=== PATIENT | male | born 1980 | race Caucasian/White ===

== ENCOUNTER 2025-02-17 12:34 | Inpatient (IN) ==
--- NOTE | 2025-02-17 13:39 | Emergency Department Note ---
Impression & Plan Decompensated cirrhosis, Abdominal ascites, Anemia, Hyperbilirubinemia, Hypocalcemia ED Provider Note NAME: SCARLETT PETER AGE: 44 SEX: M : 1980 ARRIVES VIA: Walk-In INFORMANT: Patient, Triage note ED PROVIDER(S): Bk Hewitt MD CHIEF COMPLAINT: Swollen stomach MEDICAL DECISION MAKING: Patient presents with above and likely does have significant ascitic fluid. IV was established and blood work was obtained. Patient was ordered IV morphine. Blood work shows a normal white count with a hemoglobin of 7.4. Patient's platelet count is 77. The patient's kidney function creatinine 1.4. Patient's ammonia is not elevated. Bilirubin of 2.9. Calcium 7.8. The patient was ordered calcium a gram for replacement. I did speak with the on-call hospitalist service Kathie RODRIGUEZ and the patient was admitted by Dr. Ashley. I did perform a diagnostic paracentesis after discussing the risks and benefits and after obtaining written consent removing approximately 40 cc of straw-colored fluid. No obvious purulence or blood. Patient already did have ascitic fluid studies ordered. The inpatient service. Follow-up of the studies were deferred to the inpatient service. Patient subsequently admitted to the medicine service. The patient was given additional IV morphine prior to admission to the floor. Procedures: Paracentesis performed by Dr. Hewitt Consent obtained: Yes written consent signed and given to charge nurse Time Out Performed: Yes Indication: possible spontaneous bacterial peritonitis Procedure: diagnostic paracentesis Location: Right lower quadrant Local Anesthetic: lidocaine 1% and with epi Amount of anesthesia used (mL): 4 Bedside Ultrasound Used: yes, Ascites confirmed and location marked Preparation: sterile prep and drape Amount of fluid obtained (mL): 40 Fluid: Straw-colored and sent to lab for analysis Size of Needle Used: 18 Post Procedure Exam: awake, alert, normal BP, normal HR and normal SpO2 Patient Tolerated Procedure: well Complications: none Limited Point of Care abdominal ultrasound performed by Dr. Hewitt Indication: Abdominal swelling Findings: Using a curvilinear probe, limited abdominal ultrasound did not show significant ascites noted in the abdomen. Discussion w/ other healthcare providers: JENNIFER Andrade with Dr. Ashley inpatient medicine service [facility] Prior /Outside records reviewed: None Differential diagnosis: Appendicitis, testicular torsion, UTI, diverticulitis, obstruction, renal colic, mesenteric adenitis, enteririts, PUD, pancreatitis, biliary pathology, hernia, volvulus, constipation, as well as other pathologies were considered. Diagnostics, as interpreted by me: ECG: None Cardiac monitoring: An order was placed for continuous cardiac monitoring. The monitor shows a rate of 89 with sinus rhythm. Patient was placed on pulse oximetry Medical decision rules: None Imaging studies: None HPI:Patient presents due to concern for worsening abdominal swelling. Patient reports that he has been at [facility] for last 5 days which was last on that he used alcohol. Prior to this the patient's last period of sobriety was about 2 months prior. Patient does have a known history of cirrhosis and has had prior paracentesis in the past. Patient has noticed this increasing abdominal swelling and believes that he needs to have it drained. Patient does complain of diffuse abdominal pain discomfort as well as difficulty with breathing secondary to the swelling. Patient denies any chest pains. No cough or fever. PAST MEDICAL HISTORY: See Below PAST SURGICAL HISTORY: See Below SOCIAL HISTORY: See Below HOME MEDICATIONS: See Below ALLERGIES: See Below VITALS: See Below PHYSICAL EXAMINATION: GENERAL: NAD, non-toxic. EYE EXAM: Scleral icterus noted. PERRL, no anisocoria and EOM's grossly intact w/o pain. OROPHARYNX: Moist mucus membranes, grossly normal dentition. NECK: Trachea midline, no stridor. Supple, no nuchal rigidity, no adenopathy, non-tender. No signs of meningismus. FROM of the neck with good chin to chest and neck extension. LUNGS: Clear to auscultation. Normal chest wall mechanics. HEART: NSR, no MRG. ABDOMEN: Abdominal swelling with umbilical hernia which is reducible, mild to moderate diffuse abdominal pain. Positive fluid wave. BACK: No CVA TTP. SKIN: No rashes and no bruising. UPPER EXTREMITIES: Upper extremities are grossly normal. LOWER EXTREMITIES: Grossly normal, no edema. NEURO EXAM: A&O x3, cranial nerves II-XII grossly intact, normal speech, moves all 4 extremities. Past Med/Surg History Problem List (Updated 02/18/25 @ 10:28 by Bk Hewitt MD) Hypocalcemia (Acute) Hyperbilirubinemia (Acute) Anemia (Acute) Abdominal ascites (Acute) Hypokalemia Decompensated cirrhosis (Acute) Alcohol use disorder, severe, dependence (Acute) Chronic active hepatitis Social History Smoking Status: Current every day smoker Tobacco Type: Cigarettes Hx Alcohol Use: Yes Hx Substance Use: No Preferred Language: Irish Communication Ability: Effective Platform Consultant Required: No Beliefs That Will Affect Care: None Current Living Situation: Family Current Living Situation Comment: pt lives with mother and grandmother Other Information That Helps Us Care for You: No Feels Safe at Home: Yes Allergies Allergies Allergy/AdvReac Type Severity Reaction Status Date / Time No Known Allergies Allergy Unverified 01/01/24 13:41 Home Meds Home Medications Medication Instructions Recorded Confirmed folic acid 1 mg tablet 1 mg PO DAILY 01/01/24 02/17/25 thiamine HCl (vitamin B1) 100 mg 100 mg PO UD 01/01/24 02/17/25 tablet cyanocobalamin (vitamin B-12) 1,000 mcg PO DAILY 02/17/25 02/17/25 1,000 mcg capsule famotidine 20 mg tablet 20 mg PO BID PRN reflux 02/17/25 02/17/25 melatonin 5 mg tablet 5 mg PO HS PRN sleep difficulty 02/17/25 02/17/25 ondansetron HCl 8 mg tablet 8 mg PO Q8H PRN Nausea And Vomiting 02/17/25 02/17/25 Previous Rx's Medication Instructions Recorded furosemide 20 mg tablet 20 mg PO DAILY #30 tabs 01/11/25 spironolactone 50 mg tablet 50 mg PO DAILY #30 tabs 01/11/25 (Aldactone) Results & Data (ED) Vital Signs Vital Signs - 24 hr 02/17/25 12:39 02/17/25 13:43 02/17/25 13:48 Pulse Rate 90 90 Pulse Rate [Apical] Pulse Rate from SpO2 Sensor 90 Respiratory Rate 24 Respiratory Effort / Characteristics Respiratory Depth Respiratory Pattern Blood Pressure 140/93 Blood Pressure [Right Arm] Blood Pressure Mean 108 Blood Pressure Mean [Right Arm] Blood Pressure Position [Right Arm] Pulse Oximetry 99 Oxygen Delivery Method Room Air Sepsis Recent Fever Within 48 Hours No Sepsis New/Unexplained Change in Mental Status No Sepsis Action Taken by Nursing No Action Required 02/17/25 13:59 02/17/25 14:00 02/17/25 14:30 Pulse Rate 90 89 Pulse Rate [Apical] 91 H Pulse Rate from SpO2 Sensor 89 Respiratory Rate 20 20 22 Respiratory Effort / Characteristics Non-Labored Spontaneous Respiratory Depth Normal Respiratory Pattern Regular Blood Pressure 144/88 H 135/93 Blood Pressure [Right Arm] 140/93 Blood Pressure Mean 116 107 Blood Pressure Mean [Right Arm] 108 Blood Pressure Position [Right Arm] Sitting Pulse Oximetry 99 100 96 Oxygen Delivery Method Room Air Room Air Room Air Sepsis Recent Fever Within 48 Hours Sepsis New/Unexplained Change in Mental Status Sepsis Action Taken by Skilled Nursing Medications Current Medication List: was personally reviewed by me Laboratory Data Attestation: I reviewed the patient's lab results. 02/18/25 06:40 02/18/25 06:40 Lab Results 02/17/25 02/17/25 Range/Units 13:06 13:12 WBC 5.09 (4.8-10.8) K/ul RBC 2.84 L (4.70-6.10) M/uL Hgb 7.4 L (14.0-18.0) g/dl Hct 23.5 L (42.0-52.0) % MCV 82.7 (80.0-100.0) fL MCH 26.1 (25.0-34.0) pg MCHC 31.5 L (32.0-36.0) g/dL RDW Std Deviation 58.2 H (36.4-46.3) fL RDW Coeff of Vashti 19.5 H (11.5-14.5) % Plt Count 77 L (130-400) K/uL Immature Gran % (Auto) 0.4 % Neut % (Auto) 66.0 % Lymph % (Auto) 10.6 % Upson % (Auto) 16.9 % Eos % (Auto) 4.7 % Baso % (Auto) 1.4 % Neut # (Auto) 3.36 (1.40-6.50) K/uL Lymph # (Auto) 0.54 L (1.20-3.40) K/uL Upson # (Auto) 0.86 H (0.11-0.59) K/uL Eos # (Auto) 0.24 (0.00-0.50) K/uL Baso # (Auto) 0.07 (0.00-0.20) K/uL Immature Gran # (Auto) 0.02 (0.01-0.20) K/uL Polychromasia 1+ Ovalocytes 1+ PT 12.0 (9.0-12.0) Seconds INR 1.1 (0.9-1.1) Sodium 133 L (136-145) mmol/L Potassium 3.4 L (3.5-5.1) mmol/L Chloride 100 (98-107) mmol/L Carbon Dioxide 26 (21-32) mmol/L Anion Gap 7 (3-11) BUN 20 (6-23) mg/dl Creatinine 1.40 (0.6-1.4) mg/dl Est Cr Clr Drug Dosing 84.9 ml/min eGFR 64.36 BUN/Creatinine Ratio 14.3 (10-20) Glucose 104 H (70-99(Fasting)) mg/dl Calcium 7.8 L (8.6-10.3) mg/dl Total Bilirubin 2.9 H (0.2-1.0) mg/dl AST 93 H (13-39) U/L ALT 23 (7-52) U/L Alkaline Phosphatase 242 H (34-104) U/L Ammonia 25.0 (18-72) umol/L Total Protein 6.9 (6.0-8.3) gm/dl Albumin 2.7 L (3.4-5.0) gm/dl Globulin 4.2 H (2.5-4.0) gm/dl Albumin/Globulin Ratio 0.6 L (0.9-2) Administered Medications Cyanocobalamin (Cyanocobalamin (B-12) 500 Mcg Tablet) 1,000 mcg PO DAILY DAISY Stop: 03/20/25 08:59 Last Admin: 02/18/25 09:12 Dose: 1,000 mcg Documented By: JULY Folic Acid (Folic Acid 1 Mg Tab) 1 mg PO DAILY DAISY Stop: 03/20/25 08:59 Last Admin: 02/18/25 09:12 Dose: 1 mg Documented By: JULY Furosemide (Furosemide 20 Mg Tab) 20 mg PO DAILY DAISY Stop: 03/20/25 08:59 Last Admin: 02/18/25 09:12 Dose: 20 mg Documented By: JULY Ceftriaxone Sodium (Rocephin) 2,000 mg in 50 mls @ 100 mls/hr IV Q24H DAISY Stop: 02/27/25 17:02 Last Infusion: 02/17/25 19:14 Dose: Infused Documented By: Admin: 02/17/25 18:25 Dose: 100 mls/hr Documented By: MARIBEL Pantoprazole Sodium (Protonix) 40 mg in 10 mls @ 5 mls/min IV BID DAISY Stop: 03/19/25 20:59 Last Admin: 02/18/25 09:12 Dose: 5 mls/min Documented By: Admin: 02/17/25 20:44 Dose: 5 mls/min Documented By: DESTINEE Miscellaneous (Remove Nicoderm Patch) 1 each N/A DAILY@0859 DAISY Stop: 03/20/25 08:58 Last Admin: 02/18/25 09:10 Dose: 1 each Documented By: JULY Nicotine (Nicotine 21 Mg/24 Hr Tdsy) 1 patch TD QAM DAISY Stop: 03/19/25 17:02 Last Admin: 02/18/25 09:11 Dose: 1 patch Documented By: Admin: 02/17/25 18:08 Dose: 1 patch Documented By: MARIBEL Spironolactone (Spironolactone 25 Mg Tab) 50 mg PO DAILY DAISY Stop: 03/20/25 08:59 Last Admin: 02/18/25 09:12 Dose: 50 mg Documented By: JULY Discontinued Medications Furosemide (Furosemide Inj 20 Mg/2 Ml Vial) 20 mg IV ONE ONE Stop: 02/17/25 17:29 Last Admin: 02/17/25 18:16 Dose: 20 mg Documented By: MARIBEL Furosemide (Furosemide Inj 20 Mg/2 Ml Vial) 20 mg IV ONE ONE Stop: 02/17/25 21:01 Last Admin: 02/17/25 20:44 Dose: 20 mg Documented By: DESTINEE Calcium Gluconate () 1,000 mg in 60 mls @ 240 mls/hr IV NOW STA Stop: 02/17/25 15:02 Last Infusion: 02/17/25 15:30 Dose: Infused Documented By: Admin: 02/17/25 14:57 Dose: 240 mls/hr Documented By: SHELBY Pantoprazole Sodium (Protonix) 40 mg in 10 mls @ 5 mls/min IV NOW ONE Stop: 02/17/25 17:39 Last Admin: 02/17/25 18:40 Dose: 5 mls/min Documented By: MARIBEL Lidocaine/Epinephrine (Lidocaine 1%/Epinephrine 1:100,000 50 Ml Vial) Confirm Administered Dose 20 ml .ROUTE .STK-MED ONE Stop: 02/17/25 15:51 Last Admin: 02/17/25 16:05 Dose: Not Given Documented By: CAROL Lidocaine/Epinephrine (Lidocaine 1%/Epinephrine 1:100,000 50 Ml Vial) Confirm Administered Dose 50 ml .ROUTE .STK-MED ONE Stop: 02/17/25 15:53 Last Admin: 02/17/25 16:06 Dose: 10 ml Documented By: ELLIE Morphine Sulfate (Morphine Sulfate 4 Mg/Ml 1 Ml Carp\Vial) 4 mg IV NOW STA Stop: 02/17/25 14:00 Last Admin: 02/17/25 14:03 Dose: 4 mg Documented By: ALVARO Morphine Sulfate (Morphine Sulfate 4 Mg/Ml 1 Ml Carp\Vial) 4 mg IV NOW STA Stop: 02/17/25 16:06 Last Admin: 02/17/25 17:08 Dose: 4 mg Documented By: ESIfeanyi Potassium Chloride (Potassium Chloride Crtab 20 Meq Tabcr) 40 meq PO NOW ONE Stop: 02/17/25 17:04 Last Admin: 02/17/25 18:07 Dose: 40 meq Documented By: ESIfeanyi Spironolactone (Spironolactone 25 Mg Tab) 50 mg PO NOW ONE Stop: 02/17/25 17:29 Last Admin: 02/17/25 18:07 Dose: 50 mg Documented By: MARIBEL Discharge Plan Visit Data Chief Complaint: Referred by Doctor Stated Complaint: NEED STOMACH PUMPED, FROM [facility] ED Provider: Bk Hewitt Discharge Problem: Decompensated cirrhosis, Abdominal ascites, Anemia, Hyperbilirubinemia, Hypocalcemia Patient Disposition: Admitted As Inpatient Discharge Instructions Interventions: ED Discharge Assessment Last Done: 02/17/25 17:41 Discharge Problem: Abdominal ascites Qualifiers: Ascites type: due to alcoholic cirrhosis Qualified Code(s): K70.31 - Alcoholic cirrhosis of liver with ascites Anemia Qualifiers: Anemia type: unspecified type Qualified Code(s): D64.9 - Anemia, unspecified
[2025-02-17 13:46] LABS: Albumin Level 2.7 gm/dl (3.4-5.0); Bilirubin,Total 2.9 mg/dl (0.2-1.0); Calcium 7.8 mg/dl (8.6-10.3); Potassium 3.4 mmol/L (3.5-5.1)
[2025-02-17 13:52] LABS: Albumin Globulin Ratio 0.6 (0.9-2); BUN Creatinine Ratio 14.3 (10-20); Creatinine Clr Calc Pharmacy 84.9 ml/min; Globulin 4.2 gm/dl (2.5-4.0); Total Protein 6.9 gm/dl (6.0-8.3)
[2025-02-17 13:56] LABS: Hematocrit (blood only) 23.5 % (42.0-52.0); Hemoglobin 7.4 g/dl (14.0-18.0); Mean Corpuscular Hemoglobin 26.1 pg (25.0-34.0); Mean Corpuscular Hgb Conc 31.5 g/dL (32.0-36.0); Mean Corpuscular Volume 82.7 fL (80.0-100.0); Platelet Count 77 K/uL (130-400); RDW Coefficient of Variation 19.5 % (11.5-14.5); RDW Standard Deviation 58.2 fL (36.4-46.3); Red Blood Count 2.84 M/uL (4.70-6.10); White Blood Count 5.09 K/ul (4.8-10.8)
[2025-02-17] MEDS: MoRPHine SULFATE 4 MG/ML 1 ML CARP\\VIAL IV STA ×2 (14:03→17:08)
[2025-02-17 14:14] LABS: Basophils # (auto) 0.07 K/uL (0.00-0.20); Basophils % (auto) 1.4 %; Eosinophils # (auto) 0.24 K/uL (0.00-0.50); Eosinophils % (auto) 4.7 %; Immature Granulocytes # (auto) 0.02 K/uL (0.01-0.20); Immature Granulocytes % (auto) 0.4 %; Lymphocytes # (auto) 0.54 K/uL (1.20-3.40); Lymphocytes % (auto) 10.6 %; Monocytes # (auto) 0.86 K/uL (0.11-0.59); Monocytes % (auto) 16.9 %; Neutrophils # (auto) 3.36 K/uL (1.40-6.50); Ovalocytes 1+; Polychromasia 1+
--- NOTE | 2025-02-17 14:42 | History & Physical Report ---
Date of Service February 17, 2025 Assessment & Plan (1) Decompensated cirrhosis: Plan: 44 year old male with a past medical history of decompensated cirrhosis, alcohol use disorder, chronic hepatitis with complaint of abdominal pain x 5 days. He was transferred from [facility], a rehab facility, for increasing abdominal pain. * Admit Med Surg Telemetry * Acute on chronic abdominal pain with ascites and every 1-2 weeks paracentesis at OSH * CT Abdomen and Pelvis w/o contrast * Paracentesis diagnostic and therapeutic-IR consult ordered * Peritoneal fluid c/s- ordered. * Rocephin for SBP coverage * Albumin 2.7 on admission. Will replace if >5L peritoneal fluid removed with therapeutic paracentesis * Continue home diuretics with furosemide and Aldactone * Gastroenterology consult-ordered (2) Hypokalemia: Plan: * Serum K 3.4 * Replace with Potassium Chloride 40meq x1 * Check CMP with AM labs * Consider additional replacement pending results (3) Alcohol use disorder, severe, dependence: Plan: Chronic alcohol use, last consumed ~750 ml whiskey about 5 days ago. * Monitor for withdrawal symptoms * Encourage and praise abstinence * Most likely will be discharged back to [facility]- Will need to notify Case Management Plan DVT Ppx: Yes; Rickey Damon Code status: Full PCP: No PCP Dispo: Admit to Med Surg Tele Patient seen in collaboration with Dr. Ashley. Please see addendum.I spent a total of 60 minutes coordinating, documenting and providing care for this patient excluding time spent in the performance of separately billed services or time spent by another provider/QHP. History of Present Illness Chief Complaint: Abdominal Pain Primary Care Provider: NO PCP 44 year old male with a past medical history of decompensated cirrhosis, alcohol use disorder, chronic hepatitis with complaint of abdominal pain x 5 days. He was transferred from [facility], a rehab facility, for increasing abdominal pain. He denies N/V/D, headache, dizziness, seizure activity, focal deficits, chest pain, bleeding, fever, urinary symptoms, or SI. He was voluntarily admitted for alcohol detox as he is working towards sobriety; he currently has a 35 day admission. He has chronic cirrhosis with frequent episodes of ascites requiring paracentesis every 1-2 weeks. He does not have regular PCP or GI followup and goes to [facility] when needing paracentesis. He has chronic alcohol use, last consumed ~750 ml whiskey about 5 days ago. He then voluntarily admitted himself to [facility] rehab for alcohol detox. He desires sobriety and is receiving counseling services at rehab. He lives alone and is currently unemployed. In the emergency department, he experienced severe abdominal pain, worse to the left-side, with gross abdominal distention. He was afebrile and without evidence of leukocytosis. He was hemodynamically stable with clinical evidence of anemia, Hgb 7.4, Hct 23.5%. Electrolyte imbalance, Na 133, potassium 3.4. Calcium 7.8 and received calcium gluconate in the ED. Transaminitis with AST elevated at 93, Alk phos 242. Albumin low at 2.7; however level 2.8 in 12/2024 and appears to be his baseline. Diagnostic abdominal tap completed in the ED. History obtained from the patient, external record review from [facility]. He had records at bedside. Allergies Allergy/AdvReac Type Severity Reaction Status Date / Time No Known Allergies Allergy Unverified 01/01/24 13:41 Home Medications Medication Instructions Recorded Confirmed Type folic acid 1 mg tablet 1 mg PO DAILY 01/01/24 02/17/25 History thiamine HCl (vitamin B1) 100 mg 100 mg PO UD 01/01/24 02/17/25 History tablet furosemide 20 mg tablet 20 mg PO DAILY #30 tabs 01/11/25 02/17/25 Rx spironolactone 50 mg tablet 50 mg PO DAILY #30 tabs 01/11/25 02/17/25 Rx (Aldactone) cyanocobalamin (vitamin B-12) 1,000 mcg PO DAILY 02/17/25 02/17/25 History 1,000 mcg capsule famotidine 20 mg tablet 20 mg PO BID PRN reflux 02/17/25 02/17/25 History melatonin 5 mg tablet 5 mg PO HS PRN sleep difficulty 02/17/25 02/17/25 History ondansetron HCl 8 mg tablet 8 mg PO Q8H PRN Nausea And Vomiting 02/17/25 02/17/25 History Past Med/Surg History Problem List (Updated 02/17/25 @ 17:24 by JENNIFER Rodríguez) Hypokalemia Decompensated cirrhosis (Acute) Alcohol use disorder, severe, dependence (Acute) Chronic active hepatitis Social History Smoking Status: Current every day smoker Tobacco Type: Cigarettes Hx Alcohol Use: Yes Hx Substance Use: No Preferred Language: Azerbaijani Communication Ability: Effective Sawsmith Required: No Beliefs That Will Affect Care: None Current Living Situation: Family Current Living Situation Comment: pt lives with mother and grandmother Other Information That Helps Us Care for You: No Feels Safe at Home: Yes Review of Systems Review of Systems: All systems reviewed & are unremarkable except as noted in HPI & below Physical Exam Constitutional: well developed; no acute distress Eyes: PERRL, conjunctivae normal, anicteric sclerae ENMT: external ear and nose normal, oropharynx normal Neck: trachea midline, no thyromegaly Respiratory: normal respiratory effort, lungs clear to auscultation Auscultation: lungs clear to auscultation bilaterally Cardiovascular: Rate/Rhythm: regular rate and regular rhythm Heart Sounds: normal S1 and normal S2 Extremities: normal capillary refill Gastrointestinal (Abdomen): Inspection/Auscultation: normal bowel sounds and + visible herniation Percussion/Palpation: + abdomen tender, + guarding and + ascites gross abdominal distention Musculoskeletal: no cyanosis or clubbing, extremities motor strength 5/5 Skin: no rashes, warm and dry + jaundice and normal skin elasticity Neurologic: PERRL, EOMI, accommodation nl, no face palsy, no dysarthria Psychiatric: Orientation: alert, oriented x 3 and cooperative Eye Contact: good eye contact Affect: + flat affect Suicidal Thoughts: denies suicidal thoughts Lymphatic: no cervical or axillary lymphadenopathy Results & Data Results & Data Vital Signs (Past 12 Hours) Vital Signs Pulse Pulse Resp BP BP Pulse Ox O2 Del Method 02/17/25 14:30 89 22 135/93 96 Room Air 02/17/25 14:00 90 20 144/88 H 100 Room Air 02/17/25 13:59 91 H 20 140/93 99 Room Air 02/17/25 13:48 90 24 140/93 99 Room Air 02/17/25 13:43 90 Laboratory Results Short CBC 02/17/25 Range/Units 13:06 WBC 5.09 (4.8-10.8) K/ul Hgb 7.4 L (14.0-18.0) g/dl Hct 23.5 L (42.0-52.0) % Plt Count 77 L (130-400) K/uL BMP 02/17/25 13:06 Sodium 133 L Potassium 3.4 L Chloride 100 Carbon Dioxide 26 BUN 20 Creatinine 1.40 Glucose 104 H Calcium 7.8 L Liver Function 02/17/25 Range/Units 13:06 Total Bilirubin 2.9 H (0.2-1.0) mg/dl AST 93 H (13-39) U/L ALT 23 (7-52) U/L Alkaline Phosphatase 242 H (34-104) U/L Albumin 2.7 L (3.4-5.0) gm/dl Code Status & VTE Plan Code Status Full VTE Prophylaxis Plan VTE Prophylaxis will be ordered: Yes Supervising Physician Co-Signing Physician Notes 44-year-old male with PMH of hepatitis C [since 17-year-old] and alcoholic cirrhosis (needs paracentesis every week now] presents to the ED for distended abdomen and abdominal pain and need for paracentesis. He has not yet established with GI and PCP as an outpatient. He has been in the area for about 2 months and states he is trying to establish with OP providers. He states his abdominal pain gets worse w/ distension every time and appetite goes down both of which improves w/ paracentesis. Labs and imaging reviewed. Admitting hemoglobin of 7.4, baseline around 9-10. Platelet count of 77K. Mild hyponatremia at 133, hypokalemia 3.4. LFT chronically elevated. Ammonia WNL. Abdominal pain, decompensated cirrhosis, chronic active hepatitis: N.p.o., get CTAP, IV Rocephin 2 g daily for concern of SBP, paracentesis both diagnostic and therapeutic, Will need albumin if removed > 5 L ascitic fluid removed. GI consult. c/w home diuretics Acute on chronic anemia: Hemoglobin dropped at presentation, see above. Rule out variceal bleeding in a patient with decompensated cirrhosis. Get FOBT, blood transfusion consent, n.p.o., PPI IV twice daily, GI consult. HnH q6H. Alcohol use disorder, severe, dependence: Patient is coming from [facility] where he has been 5 days without a drink. Continue to encourage patient to maintain abstinence, continue to monitor. Hypokalemia and hypocalcemia: Replete, monitor labs in AM. On exam: GENERAL: Alert and oriented x3. NAD, on RA. Appears chronically ill HEENT: No pallor, + icterus. Pupils equal, round and reactive to light. Oral mucosa moist. NECK: No JVD, no neck masses. HEART: S1 and S2 heard. Regular rate and rhythm. No murmur, no gallop. RESPIRATORY SYSTEM: Normal AP diameter. No accessory muscle use. No wheezing, no crackles. ABDOMEN: Soft, bowel sounds present, mild diffuse tender, + distention. +umbilical hernia. CENTRAL NERVOUS SYSTEM: No facial droop. Speech is clear. Obeys simple commands. Moves extremities. EXTREMITIES: No edema, no erythema seen. I have seen and examined the patient and have discussed the case with the provider above. I agree with the assessment and plan as stated. Time spent independently: 35 min
[2025-02-17] MEDS: CALCIUM GLUCONATE 1,000 MG/60 ML BAG IV STA (14:57)
[2025-02-17] MEDS: LIDOCAINE 1%/EPINEPHRINE 1:100,000 50 ML VIAL ONE ×2 (16:05→16:06)
[2025-02-17 16:29] LABS: Appearance Peritoneal Fluid Clear; Color Peritoneal Fluid Pale Yellow; RBC Peritoneal Fluid Auto < 2000 /uL; WBC Peritoneal Fluid Auto 108 /ul (0-300)
[2025-02-17] MEDS ORDERED: FAMOTIDINE 20 MG TAB PO PRN (17:02)
[2025-02-17 17:04] LABS: Albumin Peritoneal Fluid < 1.5 gm/dl; Amylase Peritoneal Fluid 27 U/L
[2025-02-17 17:10] LABS: Glucose Peritoneal Fluid 116 mg/dl; LDH Peritoneal Fluid 39 U/L; Lipase Peritoneal Fluid 87 U/L; Total Protein Peritoneal Fluid < 3.0 gm/dl
[2025-02-17] MEDS ORDERED: ONDANSETRON 4 MG OD TAB PO PRN (17:12)
[2025-02-17] MEDS ORDERED: MELATONIN 3 MG TAB PO PRN (17:12)
[2025-02-17] MEDS ORDERED: THIAMINE HCL 100 MG TAB PO SCH (17:15)
[2025-02-17 17:44] LABS: Hematocrit (blood only) 20.8 % (42.0-52.0); Hemoglobin 6.6 g/dl (14.0-18.0)
[2025-02-17] MEDS ORDERED: SODIUM CHLORIDE 0.9% 100 ML IV PRN (17:47)
[2025-02-17] MEDS: POTASSIUM CHLORIDE CRTAB 20 MEQ TABCR PO ONE (18:07)
[2025-02-17] MEDS: SPIRONOLACTONE 25 MG TAB PO ONE (18:07)
[2025-02-17] MEDS: NICOTINE 21 MG/24 HR TDSY TD SCH (18:08)
[2025-02-17 18:13] LABS: INR 1.1 (0.9-1.1)
[2025-02-17] MEDS: FUROSEMIDE INJ 20 MG/2 ML VIAL IV ONE ×2 (18:16→20:44)
[2025-02-17] MEDS: cefTRIAXone SODIUM 2,000 MG/50 ML BAG IV SCH (18:25)
[2025-02-17] MEDS: PANTOprazole 40 MG/10 ML SYR IV ONE (18:40)
[2025-02-17 19:28] LABS: Appearance Urine Clear (Clear); Bacteria Urine Automated None Seen (None Seen); Bilirubin Urine 1+ (Negative); Blood Urine 2+ (Negative); Cast Urine Automated 0-2 /lpf (0-2); Color Urine Dark Yellow; Epithelial Cell Urine Auto 0-2 /hpf (0-2); Glucose Urine UA Negative (Negative); Ketones Urine Trace (Negative); Leukocyte Esterase Urine Negative (Negative); Nitrite Urine Negative (Negative); Protein Urine Negative (Negative); Specific Gravity Urine 1.013 (1.000-1.030); Urobilinogen Urine Negative (Negative); WBC Urine Automated 0-5 /hpf (0-5); pH Urine 5.5 (4.5-7.5)
[2025-02-17] MEDS: PANTOprazole 40 MG/10 ML SYR IV SCH (20:44)
--- NOTE | 2025-02-17 23:16 | CT Scan Report ---
CLINICAL HISTORY: Abdominal pain. COMPARISON: Prior CT abdomen 01/11/2025. TECHNIQUE: Helical 2 mm acquisition without contrast of the abdomen and pelvis. All CT scans at this facility use dose modulation, iterative reconstruction, and/or weight-based dosing when appropriate to reduce radiation dose to as low as reasonably achievable. Up-to-date CT equipment and radiation dose techniques were employed. RADIATION DOSE: Total DLP: 1409.22, CTDI Vol : 24.38. FINDINGS: Lung bases: Few small atelectatic bands noted in lingula and bilateral lower lobes. Liver, biliary system: Redemonstration of cirrhotic liver. The intra and extrahepatic bile ducts appear unremarkable. Common bile duct appears unremarkable. No mass seen on this non-contrast scan. Gallbladder fossa: Redemonstration of few high density foci within the gall bladder suggesting cholelithiasis vs sludge. Spleen: Redemonstration of moderate splenomegaly measuring 18 cm. Pancreas: The pancreas appears normal in size with normal contours and homogenous parenchyma. The pancreatic duct appears unremarkable. Adrenals: Both adrenal glands appear unremarkable. Kidneys, ureter, bladder: Both kidneys show normal shape, position and parenchymal thickness. No hydronephrosis noted. Redemonstration of high-density lesion in the lateral mid pole of the left kidney again measuring 2.2 x 1.9 cm. A small non obstructing calculus measuring 3.2 mm. The ureters appear unremarkable. Urinary bladder appears adequately distended. Distal esophagus and stomach: Redemonstration of small hiatus hernia, paraoesophageal, avni gastric and avni splenic varices. Bowel: Most of the small bowel loops are collapsed. Redemonstration of colonic diverticulosis without georeg acute diverticulitis No dilatation or stenosis in the visualized bowel. Vascular: Redemonstration of focal atheromatous calcification of the left internal iliac artery. Pelvis: Redemonstration of moderate to severe ascites, generalized mesenteric fat stranding and small fluid containing umbilical hernia measures 1.0 cm in neck. Soft tissue edema along the right lateral abdominal wall is also noted. No evidence of significantly enlarged lymph nodes or free air. Pelvic viscera: Grossly unremarkable. Musculoskeletal: Redemonstration of mild lumbar spondylosis. No aggressive-appearing osseous lesions noted. IMPRESSION: 1. Redemonstration of cirrhotic liver with signs of portal hypertension without any significant interval change. 2. Suggestion of cholelithiasis/ sludge without evidence of acute cholecystitis. Would recommend sonographic correlation. 3. Stable high density suspicious lesion in the left kidney. 4. Interval evidence of non-obstructing left renal calculus. 5. Interval development of right lateral abdominal wall soft tissue edema. 6. Rest of the findings remains stable on comparison. Electronically signed by Santo Moore 02-17-2025 11:16 PM
[2025-02-17 23:39] LABS: Hematocrit (blood only) 20.4 % (42.0-52.0); Hemoglobin 6.3 g/dl (14.0-18.0)
[2025-02-18 07:04] LABS: Lymphocytes, Fluid 14 %; Mono,Macrophage,Mesothelial 82 %; Neutrophils, Fluid 5 %
[2025-02-18 07:18] LABS: Hematocrit (blood only) 19.8 % (42.0-52.0); Hemoglobin 6.4 g/dl (14.0-18.0); Mean Corpuscular Hemoglobin 26.6 pg (25.0-34.0); Mean Corpuscular Hgb Conc 32.3 g/dL (32.0-36.0); Mean Corpuscular Volume 82.2 fL (80.0-100.0); Platelet Count 64 K/uL (130-400); RDW Coefficient of Variation 19.1 % (11.5-14.5); RDW Standard Deviation 57.3 fL (36.4-46.3); Red Blood Count 2.41 M/uL (4.70-6.10); White Blood Count 5.02 K/ul (4.8-10.8)
[2025-02-18 07:37] LABS: Albumin Globulin Ratio 0.7 (0.9-2); Albumin Level 2.3 gm/dl (3.4-5.0); BUN Creatinine Ratio 14.8 (10-20); Bilirubin,Total 3.1 mg/dl (0.2-1.0); Calcium 7.5 mg/dl (8.6-10.3); Creatinine Clr Calc Pharmacy 92.9 ml/min; Globulin 3.5 gm/dl (2.5-4.0); Potassium 3.6 mmol/L (3.5-5.1); Total Protein 5.8 gm/dl (6.0-8.3)
[2025-02-18] MEDS: FOLIC ACID 1 MG TAB PO SCH (09:12)
[2025-02-18] MEDS: SPIRONOLACTONE 25 MG TAB PO SCH (09:12)
[2025-02-18] MEDS: FUROSEMIDE 20 MG TAB PO SCH (09:12)
[2025-02-18] MEDS: CYANOCOBALAMIN (B-12) 500 MCG TABLET PO SCH (09:12)
--- NOTE | 2025-02-18 11:05 | Gastrointestinal Consultation ---
<Statement entered by Stu Diehl MD - 02/18/25 16:35> I have reviewed the history, physical exam, lab and imaging findings as dictated by the mid-level provider, made any necessary modifications, and agree with the stated assessment and recommendations. A total of 40 minutes was spent in the chart/data review, direct observation, decision making and discussion of this case with the mid level provider, and other providers. Pt signed out AMA. Date of Consultation February 18, 2025 Assessment & Plan (1) Alcohol use disorder, severe, dependence: (2) Chronic active hepatitis: Plan -2 gm sodium restricted diet -Avoid NSAIDs. Limit Tylenol to <2000 mg total daily. -alcohol avoidance -trend MELDs while here -As for his abdominal pain, he has no focal tenderness on exam and is without objective concerns for uncontrolled pain. Given normal CT scan, would be concerned that this is more so related to his substance abuse history, but continue to monitor for clinical changes that may indicate an acute abdominal pathology. -Could consider duplex US portal vein. -Add Protonix 40 mg BID -Continue Lasix and Aldactone, at some point given recurrent paracentesis, could consider increasing to 40 mg and 100 mg respectively if patient's BP tolerates. -Patient needs a child health associate for outpatient management, hep C, variceal surveillance, and HCC surveillance. He notes he has been told that before but does not want to see someone. -He is refusing blood transfusions/supplemental iron offered by the primary service; no overt bleeding, but continue to monitor H/H closely. History of Present Illness Attending Physician: Jimena Diane MD History of Present Illness Patient is a 44 yo male with history of hep C diagnosed at age 17 and cirrhosis in the setting of alcohol abuse. He presented to [facility] after being sent from [facility] rehab facility for increasing abdominal pain. He notes he has had cirrhosis for "a long time" and gets a paracentesis every 1- 2 weeks when he shows up to [facility] ED. He notes he has been told to see a child health associate in the past but has not followed through. Last alcohol consumption was 5 days ago. In the emergency department, he experienced severe abdominal pain, worse to the left-side, with gross abdominal distention. He was afebrile and without evidence of leukocytosis. He was hemodynamically stable with clinical evidence of anemia, Hgb 7.4, Hct 23.5%. Electrolyte imbalance, Na 133, potassium 3.4. Calcium 7.8 and received calcium gluconate in the ED. Transaminitis with AST elevated at 93, Alk phos 242. Albumin low at 2.7; however level 2.8 in 12/2024 and appears to be his baseline. Diagnostic abdominal tap completed in the ED. No evidence of SBP. Patient's MELD 18. H/H 6.4/19.8. He has repeatedly refused blood transfusions. Platelets 64. IMPRESSION: 1. Re-demonstration of cirrhotic liver with signs of portal hypertension without any significant interval change. 2. Suggestion of cholelithiasis/ sludge without evidence of acute cholecystitis. Would recommend sonographic correlation. 3. Stable high density suspicious lesion in the left kidney. 4. Interval evidence of non-obstructing left renal calculus. 5. Interval development of right lateral abdominal wall soft tissue edema. 6. Rest of the findings remains stable on comparison. Allergies Allergy/AdvReac Type Severity Reaction Status Date / Time No Known Allergies Allergy Unverified 01/01/24 13:41 Home Medications Medication Instructions Recorded Confirmed Type folic acid 1 mg tablet 1 mg PO DAILY 01/01/24 02/17/25 History thiamine HCl (vitamin B1) 100 mg 100 mg PO UD 01/01/24 02/17/25 History tablet furosemide 20 mg tablet 20 mg PO DAILY #30 tabs 01/11/25 02/17/25 Rx spironolactone 50 mg tablet 50 mg PO DAILY #30 tabs 01/11/25 02/17/25 Rx (Aldactone) cyanocobalamin (vitamin B-12) 1,000 mcg PO DAILY 02/17/25 02/17/25 History 1,000 mcg capsule famotidine 20 mg tablet 20 mg PO BID PRN reflux 02/17/25 02/17/25 History melatonin 5 mg tablet 5 mg PO HS PRN sleep difficulty 02/17/25 02/17/25 History ondansetron HCl 8 mg tablet 8 mg PO Q8H PRN Nausea And Vomiting 02/17/25 0 02/17/25 History Patient History Social History Smoking Status: Current every day smoker Tobacco Type: Cigarettes Hx Alcohol Use: Yes Hx Substance Use: No Preferred Language: Surinamese Communication Ability: Effective Divisional Human Resources Director Required: No Beliefs That Will Affect Care: None Current Living Situation: Family Current Living Situation Comment: pt lives with mother and grandmother Other Information That Helps Us Care for You: No Feels Safe at Home: Yes Review of Systems Constitutional: no fever and no chills Respiratory: no cough and no dyspnea Cardiovascular: no chest pain Gastrointestinal: no abdominal pain Psychiatric: no problem reported Physical Exam Constitutional: well developed Respiratory: normal respiratory effort Gastrointestinal (Abdomen): ascites Psychiatric: Orientation: alert and oriented x 3 Results & Data Vital Signs (Past 12 Hours) Vital Signs Temp Pulse Pulse Resp BP BP Pulse Ox 02/18/25 08:25 36.6 C 95 H 19 129/78 98 02/18/25 06:34 92 H 02/18/25 02:50 37.0 C 93 H 18 111/62 94 O2 Del Method 02/18/25 08:25 Room Air 02/18/25 06:34 02/18/25 02:50 Room Air PG Care Time/CCT Total # of Minutes Spent Total Time Spent with Patient: Total time spent is greater than 50% in coordination of care (as documented) at patient's floor/unit and/or counseling patient: Coding Level of Care Code 61035 IN/OBS CONSULT LVL 4,60M Diagnoses Alcohol use disorder, severe, dependence F10.20 Chronic active hepatitis K73.2
[2025-02-18] MEDS ORDERED: PANTOprazole 40 MG TAB PO SCH (11:30)
[2025-02-18] MEDS: HYDROmorphone INJ 0.5 MG/0.5 ML SYR IV PRN (11:30)
--- NOTE | 2025-02-18 12:39 | Discharge Summary ---
Discharge Summary Date of Service February 18, 2025 Principal Dx & Hospital Course #1 = Principal Diagnosis (1) Decompensated cirrhosis: (2) Hypokalemia: Repleted as needed (3) Alcohol use disorder, severe, dependence: Plan 44 year old male with a past medical history of decompensated cirrhosis, alcohol use disorder, chronic hepatitis with complaint of abdominal pain x 5 days. He was transferred from [facility], a rehab facility, for increasing abdominal pain. Decompensated cirrhosis Alcohol Use Disorder, Severe Acute on chronic abdominal pain with ascites and every 1-2 weeks paracentesis at OSH Chronic alcohol use, last consumed ~750 ml whiskey about [address] Abdomen and Pelvis w/o contrast noting known cirrhosis and gallbladder sludge Pt had paracentesis completed in the ED by ED physician, peritoneal fluid cultures pending IR evaluation ordered on admission, pending Rocephin for SBP coverage Albumin 2.7 on admission Continue home diuretics with furosemide and Aldactone Monitor for signs of alcohol withdrawal Gastroenterology consulted inpatient. Pt without pcp or clinical business analyst. Pt usually receives care at [facility] ED. Pt left against medical advice on the day of discharge. He was able to verbalize the risks of doing so and signed AMA paperwork. Will need close followup with GI, hepatology and PCP after discharge. Severe Anemia Acute on chronic anemia Hemoglobin dropped at presentation, hgb eventually as low as 6.3 Pt adamantly refusing a blood transfusion Discussed with pt by admitting physician, pt's father contacted an advised at that time. Pt able to express and repeat risks of not having a blood transfusion. Discussion once more with pt by rounding attending. Pt adamantly refusing blood transfusion and consent, stating he is leaving AMA. Need to rule out variceal bleeding in a patient with decompensated cirrhosis FOBT ordered, pt refusing blood consent PPI IV twice daily, GI consult. HnH q6H. Pt left against medical advice on the day of discharge, refusing a blood transfusion. He was able to verbalize the risks of doing so and signed AMA paperwork. Notes For Next Care Provider PT SEVERELY ANEMIC REQUIRING A BLOOD TRANSFUSION PT ADAMANTLY REFUSING A BLOOD TRANSFUSION, ABLE TO COMMUNICATE RISKS OF NOT HAVING ONE HE LEFT AGAINST MEDICAL ADVICE Medication Changes From Visit PT LEFT AGAINST MEDICAL ADVICE Admission HPI Per Admitting Provider 44 year old male with a past medical history of decompensated cirrhosis, alcohol use disorder, chronic hepatitis with complaint of abdominal pain x 5 days. He was transferred from [facility], a rehab facility, for increasing abdominal pain. He denies N/V/D, headache, dizziness, seizure activity, focal deficits, chest pain, bleeding, fever, urinary symptoms, or SI. He was voluntarily admitted for alcohol detox as he is working towards sobriety; he currently has a 35 day admission. He has chronic cirrhosis with frequent episodes of ascites requiring paracentesis every 1-2 weeks. He does not have regular PCP or GI followup and goes to [facility] ED when needing paracentesis. He has chronic alcohol use, last consumed ~750 ml whiskey about 5 days ago. He then voluntarily admitted himself to [facility] rehab for alcohol detox. He desires sobriety and is receiving counseling services at rehab. He lives alone and is currently unemployed. In the emergency department, he experienced severe abdominal pain, worse to the left-side, with gross abdominal distention. He was afebrile and without evidence of leukocytosis. He was hemodynamically stable with clinical evidence of anemia, Hgb 7.4, Hct 23.5%. Electrolyte imbalance, Na 133, potassium 3.4. Calcium 7.8 and received calcium gluconate in the ED. Transaminitis with AST elevated at 93, Alk phos 242. Albumin low at 2.7; however level 2.8 in 12/2024 and appears to be his baseline. Diagnostic abdominal tap completed in the ED. History obtained from the patient, external record review from [facility]. He had records at bedside. Admission Exam Per Admitting Provider Constitutional: well developed; no acute distress Eyes: PERRL, conjunctivae normal, anicteric sclerae ENMT: external ear and nose normal, oropharynx normal Neck: trachea midline, no thyromegaly Respiratory: normal respiratory effort, lungs clear to auscultation Auscultation: lungs clear to auscultation bilaterally Cardiovascular: Rate/Rhythm: regular rate and regular rhythm Heart Sounds: normal S1 and normal S2 Extremities: normal capillary refill Gastrointestinal (Abdomen): Inspection/Auscultation: normal bowel sounds and + visible herniation Percussion/Palpation: + abdomen tender, + guarding and + ascites gross abdominal distention Musculoskeletal: no cyanosis or clubbing, extremities motor strength 5/5 Skin: no rashes, warm and dry + jaundice and normal skin elasticity Neurologic: PERRL, EOMI, accommodation nl, no face palsy, no dysarthria Psychiatric: Orientation: alert, oriented x 3 and cooperative Eye Contact: good eye contact Affect: + flat affect Suicidal Thoughts: denies suicidal thoughts Lymphatic: no cervical or axillary lymphadenopathy Discharge Exam General: Alert, orientedX3. No acute distress Psych: Pt uncooperative HEENT: NC/AT CV: RRR Resp: Breath sounds clear bilaterally Abdomen: Soft, tender, distended Extremities: No edema in lower extremities bilaterally. Updated Medication List Medication Instructions Recorded Confirmed Type folic acid 1 mg tablet 1 mg PO DAILY 01/01/24 02/17/25 History thiamine HCl (vitamin B1) 100 mg 100 mg PO UD 01/01/24 02/17/25 History tablet furosemide 20 mg tablet 20 mg PO DAILY #30 tabs 01/11/25 02/17/25 Rx spironolactone 50 mg tablet 50 mg PO DAILY #30 tabs 01/11/25 02/17/25 Rx (Aldactone) cyanocobalamin (vitamin B-12) 1,000 mcg PO DAILY 02/17/25 02/17/25 History 1,000 mcg capsule famotidine 20 mg tablet 20 mg PO BID PRN reflux 02/17/25 02/17/25 History melatonin 5 mg tablet 5 mg PO HS PRN sleep difficulty 02/17/25 02/17/25 History ondansetron HCl 8 mg tablet 8 mg PO Q8H PRN Nausea And Vomiting 02/17/25 02/17/25 History Hospital Stay Data Consultations 02/17/25 14:48 ED Decision to Admit Stat 02/17/25 17:03 Consult Gastroenterology Routine Diagnostic Imagining Performed 02/17/25 15:47 CT Abdomen and Pelvis [CT abd pelvis wo con] Routine 02/18/25 15:33 IR paracentesis abd w/img US Routine Abdomen/Pelvis CT 02/17/25 15:47 CLINICAL HISTORY: Abdominal pain. COMPARISON: Prior CT abdomen 01/11/2025. TECHNIQUE: Helical 2 mm acquisition without contrast of the abdomen and pelvis. All CT scans at this facility use dose modulation, iterative reconstruction, and/or weight-based dosing when appropriate to reduce radiation dose to as low as reasonably achievable. Up-to-date CT equipment and radiation dose techniques were employed. RADIATION DOSE: Total DLP: 1409.22, CTDI Vol : 24.38. FINDINGS: Lung bases: Few small atelectatic bands noted in lingula and bilateral lower lobes. Liver, biliary system: Redemonstration of cirrhotic liver. The intra and extrahepatic bile ducts appear unremarkable. Common bile duct appears unremarkable. No mass seen on this non-contrast scan. Gallbladder fossa: Redemonstration of few high density foci within the gall bladder suggesting cholelithiasis vs sludge. Spleen: Redemonstration of moderate splenomegaly measuring 18 cm. Pancreas: The pancreas appears normal in size with normal contours and homogenous parenchyma. The pancreatic duct appears unremarkable. Adrenals: Both adrenal glands appear unremarkable. Kidneys, ureter, bladder: Both kidneys show normal shape, position and parenchymal thickness. No hydronephrosis noted. Redemonstration of high-density lesion in the lateral mid pole of the left kidney again measuring 2.2 x 1.9 cm. A small non obstructing calculus measuring 3.2 mm. The ureters appear unremarkable. Urinary bladder appears adequately distended. Distal esophagus and stomach: Redemonstration of small hiatus hernia, paraoesophageal, avni gastric and avni splenic varices. Bowel: Most of the small bowel loops are collapsed. Redemonstration of colonic diverticulosis without george acute diverticulitis No dilatation or stenosis in the visualized bowel. Vascular: Redemonstration of focal atheromatous calcification of the left internal iliac artery. Pelvis: Redemonstration of moderate to severe ascites, generalized mesenteric fat stranding and small fluid containing umbilical hernia measures 1.0 cm in neck. Soft tissue edema along the right lateral abdominal wall is also noted. No evidence of significantly enlarged lymph nodes or free air. Pelvic viscera: Grossly unremarkable. Musculoskeletal: Redemonstration of mild lumbar spondylosis. No aggressive-appearing osseous lesions noted. IMPRESSION: 1. Redemonstration of cirrhotic liver with signs of portal hypertension without any significant interval change. 2. Suggestion of cholelithiasis/ sludge without evidence of acute cholecystitis. Would recommend sonographic correlation. 3. Stable high density suspicious lesion in the left kidney. 4. Interval evidence of non-obstructing left renal calculus. 5. Interval development of right lateral abdominal wall soft tissue edema. 6. Rest of the findings remains stable on comparison. Electronically signed by Santo Moore 02-17-2025 11:16 PM Discharge Instructions Given to Patient (Per Discharging Provider) None- pt left AMA Total Time Total Time Spent Total Time Spent (In Minutes): 60
== END 2025-02-18 13:03 | disposition left against medical advice (07) | DRG 434 ==
LOC: ED 12:34 → 2N 14:31 → SUATTDRO 14:31 → 2N 17:41